=== PATIENT | female | born 1955 | race Caucasian/White ===

== ENCOUNTER 2021-01-23 19:31 | Emergency (ER) | payer BC ==
[~2021-01-23] VITALS: Ht 165.1 cm; Wt 67.3 kg
[2021-01-23 20:22] LABS: BASOPHILS % (AUTO) 0.9 % (0-1); EOSINOPHILS # (AUTO) 0.1 X10'3 (0-0.9); EOSINOPHILS % (AUTO) 2.1 % (0-6); HEMATOCRIT 32.1 % (35.0-45.0); HEMOGLOBIN 10.2 g/dl (12.0-16.0); LYMPHOCYTES % (AUTO) 21.7 % (21-51); MEAN CORPUSCULAR HEMOGLOBIN 25.6 PG (27.0-31.0); MEAN CORPUSCULAR HGB CONC 31.9 g/dL (33.0-36.5); MEAN CORPUSCULAR VOLUME 80.4 FL (78-98); MEAN PLATELET VOLUME 8.1 FL (7.4-10.4); MONOCYTES # (AUTO) 0.3 X10'3 (0-0.9); MONOCYTES % (AUTO) 6.5 % (2-12); NEUTROPHILS # (AUTO) 3.2 X10'3 (1.8-7.7); NEUTROPHILS % (AUTO) 68.8 % (42-75); PLATELET COUNT 252 X10'3 (140-440); RED BLOOD COUNT 3.99 X10'6 (4.20-5.60); RED CELL DISTRIBUTION WIDTH 14.7 % (11.5-14.5); WHITE BLOOD COUNT 4.6 X10'3 (4.5-11.0)
[2021-01-23 20:46] LABS: ALANINE AMINOTRANSFERASE 18 U/L (12-78); ALBUMIN 3.5 G/DL (3.4-5.0); ALKALINE PHOSPHATASE 83 IU/L (46-116); ANION GAP 7 (8-16); ASPARTATE AMINO TRANSFERASE 18 U/L (10-37); BILIRUBIN,TOTAL 0.3 MG/DL (0.1-1.0); BLOOD UREA NITROGEN 13 MG/DL (7-18); BUN/CREATININE RATIO 14.9 (6.6-38.0); CALCIUM 8.6 MG/DL (8.5-10.1); CHLORIDE 99 MMOL/L (99-107); CREATININE 0.87 MG/DL (0.40-0.90); GLUCOSE 147 MG/DL (70-104); POTASSIUM 3.6 MMOL/L (3.5-5.1); SODIUM 135 MMOL/L (135-145); TOTAL CARBON DIOXIDE 29.2 MMOL/L (24-32); TOTAL PROTEIN 6.9 G/DL (6.4-8.2); eGFR 66 ML/MIN
--- NOTE | 2021-01-23 21:16 | NUR ---
BREAKING PRIMARY RN, WILL MONITOR
--- NOTE | 2021-01-23 21:31 | NUR ---
BREAKING PRIMARY RN, WILL CONT TO MONITOR
[2021-01-23 21:50] LABS: CLARITY,URINE CLEAR (Clear); COLOR,URINE YELLOW (Yellow); GLUCOSE, URINE NEGATIVE (Neg); KETONES,URINE NEGATIVE (Neg); LEUKOCYTE ESTERASE ,URINE NEGATIVE (Neg); NITRITES, URINE NEGATIVE (Neg); OCCULT BLOOD,URINE NEGATIVE (Neg); PH,URINE 5.5 (4.8-8.0); PROTEIN,URINE NEGATIVE (Neg); UROBILINOGEN,URINE 0.2 E.U/dL (0.2-1.0)
[2021-01-23 22:47] LABS: UA COLLECTION TYPE CLN CATCH MIDSTREAM
[2021-01-23 23:29] LABS: LIPASE 62 U/L (73-393)
[2021-01-24] MEDS ORDERED: FAMO40TA73 PO (00:06)
[2021-01-24] MEDS ORDERED: mag hydrox/Alum hydrox/simeth 30ml oral suspension PO ONE (00:10)
[2021-01-24] MEDS ORDERED: LIDOcaine Viscous 15ml cup MM ONE (00:10)
[2021-01-24] MEDS ORDERED: diphenhydrAMINE 25 MG/10 ML UD oral solution PO ONE (00:10)
[2021-01-24 00:26] VITALS: BP 145/82
== END 2021-01-24 00:33 | disposition home or self-care (01) ==
LOC: ER 19:32
DX: R10.11 Right upper quadrant pain (principal); R10.13 Epigastric pain; Z72.89 Other problems related to lifestyle; Z95.0 Presence of cardiac pacemaker; Z79.899 Other long term (current) drug therapy
CPT/HCPCS: 36415; 71045; 76700; 80053; 81003; 82948; 83690; 83880; 84484; 85025; 93005; 99285; Q0163

== ENCOUNTER 2021-07-19 09:24 | Emergency (ER) | payer MEDICARE ==
[~2021-07-19] VITALS: Ht 165.1 cm; Wt 75.0 kg
[~2021-07-19 09:24] MED LIST: FAMO40TA73 PO
[2021-07-19] MEDS ORDERED: LIDOcaine 1% 30ml preserv. free vial IJ STA (09:56)
[2021-07-19] MEDS ORDERED: HYDROcodone/acetaminophen 5mg/325mg tablet PO ONE ×2 (10:00→12:40)
[2021-07-19] MEDS ORDERED: dextrose ORAL solution 15 GM/59 ML bottle PO ONE (10:00)
[2021-07-19 11:29] VITALS: BP 126/53
[2021-07-19] MEDS ORDERED: HYDR-3965 PO (12:29)
== END 2021-07-19 14:24 | disposition home or self-care (01) ==
LOC: ER 09:25
DX: S01.511A Laceration without foreign body of lip, initial encounter (principal); R68.84 Jaw pain; Z79.899 Other long term (current) drug therapy; Z72.89 Other problems related to lifestyle; Z95.0 Presence of cardiac pacemaker; W01.0XXA Fall on same level from slipping, tripping and stumbling without subsequent striking against object, initial encounter; Y93.89 Activity, other specified; Y92.009 Unspecified place in unspecified non-institutional (private) residence as the place of occurrence of the external cause; Y99.8 Other external cause status
CPT/HCPCS: 40650; 70486; 82948; 99284

== ENCOUNTER 2021-07-25 16:27 | Emergency (ER) | payer MEDICARE ==
[~2021-07-25] VITALS: Ht 165.1 cm; Wt 67.3 kg
[~2021-07-25 16:27] MED LIST changes: +HYDR-3965 PO
[2021-07-25 16:31] VITALS: BP 139/74
[2021-07-25] MEDS ORDERED: AMOX-422 PO (16:51)
== END 2021-07-25 17:00 | disposition home or self-care (01) ==
LOC: ER 16:27
DX: S01.511D Laceration without foreign body of lip, subsequent encounter (principal); L08.9 Local infection of the skin and subcutaneous tissue, unspecified; X58.XXXD Exposure to other specified factors, subsequent encounter
CPT/HCPCS: 99283